=== PATIENT | female | born 1985 | race Two or more races ===

== ENCOUNTER → 2024-05-20 09:45 | Outpatient (CLI) | payer OTHER | END | disposition home or self-care (01) | LOC: PRENATAL 09:45 | PROVIDERS: ATTEND Obstetrics & Gynecology Maternal & Fetal Medicine | DX: O26.843 Uterine size-date discrepancy, third trimester (principal); O36.8130 Decreased fetal movements, third trimester, not applicable or unspecified; O34.219 Maternal care for unspecified type scar from previous cesarean delivery; O09.513 Supervision of elderly primigravida, third trimester; Z3A.32 32 weeks gestation of pregnancy ==